=== PATIENT | female | born 1975 | race Caucasian/White ===

== ENCOUNTER 2022-11-17 01:28 | Emergency (ER) | payer SELFPAY ==
[2022-11-17] MEDS ORDERED: ONDANSETRON 4 MG/2 ML VIAL IVP STA (01:30)
[2022-11-17] MEDS ORDERED: ALTEPLASE BOLUS FOR STROKE 9 MG in EMPTY SYRINGE 1 SYR IV STA (01:35)
[2022-11-17] MEDS ORDERED: ALTEPLASE 81 MG in EMPTY BAG 1 BAG IV STA (01:35)
[2022-11-17] MEDS ORDERED: Alteplase PER PHARMACY Stroke 1 EACH MISC MISCELLANE PRN (01:43)
--- NOTE | 2022-11-17 01:43 | ED ---
General Adult HPI - General Chief complaint: Neuro Symptoms/Deficit Stated complaint: stroke Time Seen by Provider: 11/17/22 01:31 Source: EMS Mode of arrival: EMS Limitations: altered mental status - History of Present Illness Initial comments: Dictation was produced using [employer] dictation software. please excuse any grammatical, word or spelling errors. Chief Complaint: 47-year-old female presents to the emergency department with strokelike symptoms History of Present Illness: To 47-year-old female shows multiple comorbidities. History of present illness obtained from EMS. Patient at approximately 12:15 AM was last seen normal. Shortly after noticed that patient was on the floor and unresponsive with altered mental status. Patient has history of heart attack. More history was obtained from . She has history of heart attack takes multiple medications. She has heart failure. says she is on blood thinner medications but is not sure what. No history of stroke. Baseline patient usually cares for herself but avoids any exertional activity. The ROS documented in this emergency department record has been reviewed and confirmed by me. Those systems with pertinent positive or negative responses have been documented in the HPI. All other systems are other negative and/or noncontributory. PHYSICAL EXAM: General Impression: Alert, not talking, tremulous HEENT: Normocephalic atraumatic, extra-ocular movements intact, pupils equal and reactive to light bilaterally, mucous membranes moist. Cardiovascular: Heart regular rate and rhythm Chest: no retractions, no tachypnea Abdomen: abdomen soft, non-tender, non-distended, no organomegaly Musculoskeletal: Pulses present and equal in all extremities, no peripheral edema Neurological: Right-sided facial droop, paralysis to the right arm and right leg, no sensation to painful stimuli to the right extremities. Aphasic with no speech Skin: Intact with no visualized rashes ED course: 47-year-old female presents to emergency room for strokelike symptoms. Last known normal was at around 12:00 AM. Code alteplase was paged prior to patient's arrival. Initial NIH score is 21. Irregular axis patient's medication list. Does not appear she is on any anticoagulation medications. Nursing notes and chart review was performed No intracranial bleed. Risk and benefits regarding out with initiation was discussed with and patient. understands the risks. They're agreeable with thrombolytic administration. Patient is a candidate for alteplase. This administered. CT angiography was reviewed by Dr. Womack to stroke neurologist states that there is an M to obstruction. Patient is a candidate for thrombectomy. He requested patient be sent to [facility] for intervention. I was notified of these recommendations and they are agreeable. Was pt. sent in by a medical professional or institution (, PA, DES[employer], urgent care, hospital, or long term...) When possible be specific @ -No Did you speak to anyone other than the patient for history (EMS, parent, family, police, friend...)? What history was obtained from this source @ -EMS, Did you review nursing and triage notes (agree or disagree)? Why? @ -I reviewed and agree with nursing and triage notes Were old charts reviewed (outside hosp., previous admission, EMS record, old EKG, old radiological studies, urgent care reports/EKG's, long term records)? Report findings @ -No old charts available. Patient did have a medication list on her cell phone that was reviewed Differential Diagnosis (chest pain, altered mental status, abdominal pain women, abdominal pain men, vaginal bleeding, musculoskeletal, weakness, fever, dyspnea, syncope, headache, dizziness, GI bleed, back pain, seizure, CVA, palpatations, mental health)? @ - Differential CVA: Ischemic stroke, hemorrhagic stroke, brain tumor, atypical migraine, Wernicke's encephalopathy, seizure, multiple sclerosis, meningitis, encephalitis, hypoglycemia, Guillain-Weeks, electrolytes disturbance, myasthenia gravis.... This is not meant to be an all-inclusive list EKG interpreted by me (3pts min.). @ -My EKG interpretation: Ventricular rate 93, sinus rhythm,. Interval 181, QRS 11, QTC 424. No CT prolongation, no QTC prolongation, no ST or T-wave changes noted. X-rays interpreted by me (1pt min.). @ -None done CT interpreted by me (1pt min.). @ -No intracranial bleed. U/S interpreted by me (1pt. min.). @ -None done What testing was considered but not performed or refused? (CT, X-rays, U/S, labs)? Why? @ -None What meds were considered but not given or refused? Why? @ -None Did you discuss the management of the patient with other professionals (professionals i.e. Dr., PA, [employer], lab, RT, psych nurse, social services technician, whale fisherman, teacher, security officer, immigration case worker)? Give summary @ -case with Dr. Womack, stroke neurologist. Case also discussed with Dr. hooks for ER transfer. Was smoking cessation discussed for >3mins.? @ -No Was critical care preformed (if so, how long)? @ -Yes, 33 minutes Were there social determinants of health that impacted care today? How? (Homelessness, low income, unemployed, alcoholism, drug addiction, transportation, low edu. Level, literacy, decrease access to med. care, penitentiary, rehab)? @ -Serbian resident Was there de-escalation of care discussed even if they declined (Discuss DNR or withdrawal of care, Hospice)? DNR status @ -No What co-morbidities impacted this encounter? (DM, HTN, Smoking, COPD, CAD, Cancer, CVA, ARF, Chemo, Hep., AIDS, mental health diagnosis, sleep apnea, morbid obesity)? @ -Myocardial infarction Was patient admitted / discharged? Hospital course, mention meds given and route, prescriptions, significant lab abnormalities, going to OR and other pertinent info. @ -47-year-old female presents with strokelike symptoms. Patient treated with alteplase. She had a blockage seen on CT angiography. Will be transferred to [facility] for thrombectomy procedure. Undiagnosed new problem with uncertain prognosis? @ -No Drug Therapy requiring intensive monitoring for toxicity (Heparin, Nitro, Insulin, Cardizem)? @ -No Were any procedures done? @ -No Diagnosis/symptom? Acute, or Chronic, or Acute on Chronic? Uncomplicated (without systemic symptoms) or Complicated (systemic symptoms)? @ -1. Acute complicated cerebrovascular accident Side effects of treatment? @ -yes Exacerbation, Progression, or Severe Exacerbation? @ -No Poses a threat to life or bodily function? How? (Chest pain, [place], [place], pneumonia, PE, COPD, DKA, ARF, appy, cholecystitis, CVA, Diverticulitis, Homicidal, Suicidal, threat to staff... and all critical care pts) @ -yes - Related Data Home Medications Medication Instructions Recorded Confirmed Aspirin [[place] Aspirin EC] 81 mg PO DAILY 11/17/22 11/17/22 Furosemide [Lasix] 40 mg PO BID 11/17/22 11/17/22 Sacubitril/Valsartan [Entresto 24 1 tablet PO BID 11/17/22 11/17/22 mg-26 mg Tablet] Spironolactone 25 mg PO DAILY 11/17/22 11/17/22 traZODone HCL [Desyrel] 50 mg PO HS 11/17/22 11/17/22 Allergies Allergy/AdvReac Type Severity Reaction Status Date / Time morphine Allergy Nausea & Verified 11/17/22 01:39 Vomiting Penicillins Allergy Unknown Verified 11/17/22 01:39 Review of Systems ROS Statement: Those systems with pertinent positive or pertinent negative responses have been documented in the HPI. ROS Other: All systems not noted in ROS Statement are negative. General Exam Limitations: altered mental status Course Vital Signs 11/17/22 11/17/22 11/17/22 01:43 01:47 01:58 Temperature 98.6 F Pulse Rate 94 Respiratory 20 18 18 Rate Blood Pressure 125/90 Blood Pressure 127/95 [Right Arm] O2 Sat by Pulse 97 98 98 Oximetry Medical Decision Making - Lab Data Result diagrams: 11/17/22 01:50 Lab Results 11/17/22 Range/Units 01:50 WBC 6.5 (3.8-10.6) k/uL RBC 4.20 (3.80-5.40) m/uL Hgb 13.4 (11.4-16.0) gm/dL Hct 38.4 (34.0-46.0) % MCV 91.3 (80.0-100.0) fL MCH 31.9 (25.0-35.0) pg MCHC 35.0 (31.0-37.0) g/dL RDW 12.4 (11.5-15.5) % Plt Count 231 (150-450) k/uL MPV 7.3 Neutrophils % 60 % Lymphocytes % 28 % Monocytes % 5 % Eosinophils % 4 % Basophils % 1 % Neutrophils # 3.9 (1.3-7.7) k/uL Lymphocytes # 1.8 (1.0-4.8) k/uL Monocytes # 0.4 (0-1.0) k/uL Eosinophils # 0.3 (0-0.7) k/uL Basophils # 0.0 (0-0.2) k/uL Disposition Clinical Impression: Cerebrovascular accident (CVA) Disposition: OTHER INSTITUTION NOT DEFINED Condition: Critical Referrals: None,Stated [Primary Care Provider] - 1-2 days Time of Disposition: 02:12 - Out of Hospital Transfer - Req. Specs Out of Hospital Transfer - Requested Specifics: Other Emergency Center ([facility])
--- NOTE | 2022-11-17 01:53 | CT ---
EXAMINATION TYPE: CT brain wo con for TPA DATE OF EXAM: 11/17/2022 COMPARISON: None HISTORY: CODE ALTEPASE CT DLP: 1911.3 mGycm Automated exposure control for dose reduction was used. Images of the brain obtained with no contrast. Ventricles have normal size. There is no mass effect or midline shift. No sign of intracranial hemorr jennifer. Calvarium is intact. There is normal aeration of the mastoid sinuses. IMPRESSION: Negative unenhanced head CT scan
[2022-11-17 02:04] LABS: Basophils % (A) 1 %; Eosinophils # (A) 0.3 k/uL (0-0.7); Eosinophils % (A) 4 %; HCT 38.4 % (34.0-46.0); HGB 13.4 gm/dL (11.4-16.0); Lymphocytes # (A) 1.8 k/uL (1.0-4.8); Lymphocytes % (A) 28 %; MCH 31.9 pg (25.0-35.0); MCV 91.3 fL (80.0-100.0); Mean Platelet Volume 7.3; Monocytes # (A) 0.4 k/uL (0-1.0); Monocytes % (A) 5 %; Neutrophils # (A) 3.9 k/uL (1.3-7.7); Neutrophils % (A) 60 %; Platelet Count 231 k/uL (150-450); RDW 12.4 % (11.5-15.5); WBC 6.5 k/uL (3.8-10.6)
--- NOTE | 2022-11-17 02:05 | CT ---
EXAMINATION TYPE: CT angio head neck DATE OF EXAM: 11/17/2022 COMPARISON: None HISTORY: CODE ALTEPASE CT DLP: 752.3 mGycm Automated exposure control for dose reduction was used. CONTRAST: Performed with IV Contrast, patient injected with 65 mL of Isovue 370. Images obtained from the aortic arch to the vertex of the brain with the IV contrast. There are Three -D postprocessed images. There is normal branching pattern of the great vessels on the aortic arch. There is bilateral arteria l flow in the subclavian arteries. There is arterial flow in the common internal and external carotid arteries bilaterally. There is wide patency of the carotid artery bifurcations. There is arterial fl ow in both vertebral arteries. There is arterial flow in the vertebrobasilar artery system. No eviden ce of carotid or vertebral artery aneurysm or dissection. There is arterial flow in the anterior middle and posterior cerebral arteries bilaterally. No evidenc e of intracranial hemodynamic arterial stenosis. No mass effect. No evidence of intracranial aneurysm or neovascularity. Posterior cerebral arteries appear to fill only through the basilar artery. There is normal enhancement of the venous sinuses. IMPRESSION: Negative CT angiogram of the neck. Negative CT angiogram of the brain.
--- NOTE | 2022-11-17 02:22 | XR ---
EXAMINATION TYPE: XR chest 1V DATE OF EXAM: 11/17/2022 COMPARISON: NONE HISTORY: Altered mental status TECHNIQUE: Single view FINDINGS: Heart and mediastinum are normal. Lungs are clear. Diaphragm is normal. Bony thorax appears normal. IMPRESSION: Normal chest. Normal heart.
[2022-11-17 02:23] VITALS: PULSE 98
[2022-11-17 02:24] LABS: Prothrombin Time 10.9 sec (9.0-12.0)
[2022-11-17 02:35] LABS: Partial Thromboplastin Time 21.3 sec (22.0-30.0)
[2022-11-17] MEDS ORDERED: SODIUM CHLORIDE 0.9% 50 ML MINI-BAG IV ONE ×2 (02:36→02:43)
[2022-11-17 03:02] LABS: ALT 47 U/L (4-34); AST 30 U/L (14-36); African American GFR (CKD) >90 (>60 ml/min/1.73 sqM); Albumin 3.7 g/dL (3.5-5.0); Alkaline Phosphatase 41 U/L (38-126); Anion Gap 5 mmol/L; Blood Urea Nitrogen 13 mg/dL (7-17); Calcium 8.8 mg/dL (8.4-10.2); Carbon Dioxide 25 mmol/L (22-30); Chloride 103 mmol/L (98-107); Creatine Kinase 33 U/L (30-135); Glucose 274 mg/dL (74-99); Non-African American GFR(CKD) >90 (>60 ml/min/1.73 sqM); Potassium 4.3 mmol/L (3.5-5.1); Sodium 133 mmol/L (137-145); Total Bilirubin 0.4 mg/dL (0.2-1.3); Total Protein 6.1 g/dL (6.3-8.2)
[2022-11-17 03:05] VITALS: BP 140/87; RESP 16; TEMP 98.2
[2022-11-18 12:47] LABS: Glucose,Whole Blood 250 mg/dL (70-110)
== END 2022-11-17 02:45 | disposition other institution (70) ==
LOC: EC 01:28
DX: I63.9 Cerebral infarction, unspecified (principal); Z88.5 Allergy status to narcotic agent; Z88.0 Allergy status to penicillin
CPT/HCPCS: 36415; 93005; 80053; 82550; 84484; 85025; 85610; 85730; 71045; 70496; 70450; 70498; 99291; 96374; 37195; J2997; J2405; Q9967